=== PATIENT | female | born 1985 | race Caucasian/White ===

== ENCOUNTER 2017-04-20 13:46 | Outpatient (CLI) | payer MEDICAID ==
[~2017-04-20] VITALS: Ht 170.2 cm; Wt 73.9 kg
[2017-04-21] MEDS ORDERED: IBUP-1780 PO (07:24)
[2017-04-21] MEDS ORDERED: OXYC-465 PO (07:24)
== END 2017-04-20 14:22 ==
LOC: PREOP 13:46
PROVIDERS: ATTEND Obstetrics & Gynecology
DX: Z01.818 Encounter for other preprocedural examination (principal); O02.1 Missed abortion; D64.9 Anemia, unspecified

== ENCOUNTER 2017-04-21 06:05 | Day surgery (SDC) | payer BC, MEDICAID ==
[~2017-04-21] VITALS: Ht 170.2 cm; Wt 73.9 kg
[2017-04-21 06:15] VITALS: BP 127/81
[2017-04-21] MEDS ORDERED: LIDOCAINE PF 2% 5 ML (XYLOCAINE) VIAL ONE (06:32)
[2017-04-21] MEDS ORDERED: proPOfol 200 MG/20 ML (DIPRIVAN) VIAL IV ONE (06:32)
[2017-04-21] MEDS ORDERED: SEVOFLURANE (ULTANE) 15 ML INHAL SOLN ONE ×3 (06:32→07:42)
[2017-04-21] MEDS ORDERED: MIDAZOLAM 10 MG/2 ML (VERSED) VIAL ONE (06:33)
[2017-04-21] MEDS ORDERED: fentaNYL INJECTION 100 MCG/2 ML AMP ONE (06:33)
[2017-04-21] MEDS ORDERED: CEFAZOLIN IV ONE ×2 (06:45)
[2017-04-21] MEDS ORDERED: D5W IV ONE ×2 (06:45)
[2017-04-21] MEDS ORDERED: CATHETER FLUSH 10 ML SYR IV PRN (06:45)
[2017-04-21 06:54] LABS: BASOPHILS % (AUTO) 1 % (0-10); EOSINOPHILS # (AUTO) 0.2 10^3/uL (0.0-0.3); EOSINOPHILS % (AUTO) 3 % (0-10); HEMATOCRIT 37 % (35-52); HEMOGLOBIN 13.3 G/DL (11.5-16.0); LYMPHOCYTES # (AUTO) 1.9 X 10^3 (1.0-4.0); LYMPHOCYTES % (AUTO) 35 % (12-44); MEAN CORPUSCULAR HEMOGLOBIN 32 PG (25-34); MEAN CORPUSCULAR HGB CONC 36 G/DL (32-36); MEAN CORPUSCULAR VOLUME 89 FL (80-99); MEAN PLATELET VOLUME 9.4 FL (7.4-10.4); MONOCYTES # (AUTO) 0.5 X 10^3 (0.0-1.0); MONOCYTES % (AUTO) 8 % (0-12); NEUTROPHILS # (AUTO) 2.9 X 10^3 (1.8-7.8); NEUTROPHILS % (AUTO) 53 % (42-75); PLATELET COUNT 256 10^3/uL (130-400); RED CELL DISTRIBUTION WIDTH 12.1 % (10.0-14.5); WHITE BLOOD COUNT 5.5 10^3/uL (4.3-11.0)
[2017-04-21] MEDS ORDERED: ceFAZolin INJECTION 1,000 MG in D5W 50 ML IVPB SOLUTION 50 ML IV ONE (07:00)
[2017-04-21] MEDS ORDERED: D5 LR IV SOLUTION 1,000 ML IV SCH (07:21)
[2017-04-21] MEDS ORDERED: IBUP-1780 PO (07:24)
[2017-04-21] MEDS ORDERED: OXYC-465 PO (07:24)
--- NOTE | 2017-04-21 07:25 | Discharge Instructions ---
Discharge Instructions Discharge Medications New, Converted or Re-Newed RX: RX on Chart Patient Instructions Patient Instructions: as directed Return to The Hospital For: as directed Activity & Diet Discharge Diet: No Restrictions Activity as Tolerated: Yes Orders-Post D/C & Referrals Follow Up Appt: Call to make follow up appt. for patient in 2 weeks. Activity: as tolerated. Diet: As tolerated-Clear Liquids only if nauseated. May shower or tub bathe as desired. Nothing per vagina (no tampons, douching, or intercourse) for 2 weeks. Patient to return to the clinic as soon as possible for: Temperature greater than 101F, Severe Pain, Foul discharge from incision or vagina, Excessive Bleeding (more than a period). LIVAN ENGEL MD Apr 21, 2017 7:25 am
--- NOTE | 2017-04-21 07:26 | Progress Note-Pre Operative ---
Pre-Operative Progress Note H&P Reviewed The H&P was reviewed, patient examined and no changes noted. Date Seen by Provider: Apr 21, 2017 Time Seen by Provider: 07:25 Date H&P Reviewed: Apr 21, 2017 Time H&P Reviewed: : Pre-Operative Diagnosis: missed /blighted ovum LIVAN ENGEL MD Apr 21, 2017 7:26 am
--- NOTE | 2017-04-21 07:27 | Progress Note-Post Operative ---
Post-Operative Progess Note Surgeon (s)/Public Health Nutritionist (s) Surgeon LIVAN ENGEL MD Public Health Nutritionist: none Pre-Operative Diagnosis missed /blighted ovum Post-Operative Diagnosis same with pathology pending Procedure & Operative Findings Date of Procedure 04/21/17 Procedure Performed/Findings D&C for blighted ovum Anesthesia Type GETA Estimated Blood Loss Estimated blood loss (mL): less than 100 mL Specimens/Packing Specimens Removed uterine contents/products of conception Packing: none LIVAN ENGEL MD Apr 21, 2017 07:27
[2017-04-21] MEDS ORDERED: MEPERIDINE (DEMEROL) INJ 100 MG/ML IM ONE (07:30)
[2017-04-21] MEDS ORDERED: KETOROLAC 30 MG/ML VIAL IVP ONE (07:30)
[2017-04-21] MEDS ORDERED: oxyCODONE/APAP 10/325MG (PERCOCET 10) TABLET PO PRN (07:30)
[2017-04-21] MEDS ORDERED: ONDANSETRON 4 MG/2 ML (SDV) Z0FRAN IVP PRN ×2 (07:30→08:00)
[2017-04-21] MEDS ORDERED: PROMETHAZINE INJ 25 MG/ML (PHENERGAN) AMP IM ONE (07:30)
[2017-04-21] MEDS ORDERED: ONDANSETRON 4 MG/2 ML (SDV) Z0FRAN ONE (07:42)
[2017-04-21] MEDS ORDERED: MEPERIDINE (DEMEROL) INJ 50 MG/ML IVP PRN (08:00)
[2017-04-21] MEDS ORDERED: morphine INJ 10 MG/ML 1ML (SYR OR VIAL) IVP PRN (08:00)
--- NOTE | 2017-04-21 08:31 | OPERATIVE REPORT ---
DATE OF SERVICE: 04/21/2017 PREOPERATIVE DIAGNOSIS: Missed /blighted ovum. POSTOPERATIVE DIAGNOSIS: Missed /blighted ovum. OPERATIVE PROCEDURE: D and C for missed AB. DESCRIPTION: With the patient in the supine position under satisfactory general anesthesia, she was repositioned in dorsal lithotomy position in the [facility][note 3]rups and prepped and draped in the usual fashion for vaginal surgery. The urinary bladder was emptied with a straight catheter. Weighted speculum placed in the posterior points of the vagina, cervix exposed and grasped anteriorly with single tooth tenaculum. The uterus was sounded to 13 cm uterine sound. The cervix was then serially dilated with Vipul dilators to accommodate a #9 curve sucking curette, which was introduced and the uterine cavity curettaged with removal of a large amount of trophoblastic and decidual appearing tissue and fluid, blood clot and debris. The endometrial cavity sharply curettaged in all 4 quadrants to good uterine cry and then a curved sucking curette was reintroduced. All blood clot and debris evacuated from the uterus. The tenaculum was removed from the cervix. There was some bleeding from both puncture sites. These were touched with silver nitrate to effect hemostasis. With bleeding controlled, no bleeding from the cervical os. The uterus had decreased in size from approximately 10 weeks to 6 or 8-week size and was contracted nicely. There was no significant bleeding. Sponge and needle counts were correct. The estimated blood loss was less than 100 mL. The patient tolerated the procedure well and was uneventfully awakened from her general anesthesia and transferred to recovery room in stable condition with plans for discharge home PAR. Job ID: [id number] DocumentID: [id number] Dictated Date: 04/21/2017 07:45:30 Environmental Technology Professor Date: 04/21/2017 08:31:03 Dictated By: LIVAN ENGEL MD
[2017-04-21 08:35] VITALS: BP 141/85
[2017-04-21 08:36] VITALS: BP 141/85
[2017-04-21 09:05] VITALS: BP 120/78
[2017-04-21] MEDS ORDERED: LACTATED RINGERS 1,000 ML IV PRN (09:21)
[2017-04-21] MEDS ORDERED: IBUPROFEN 800 MG (MOTRIN) TAB PO ONE (09:45)
--- OUTSIDE RECORDS SUMMARY | 2017-04-23 06:12 | XMS REPORT ---
Author Author PASCUAL BENJAMIN [facility] eClinicalWorks Address Unknown Phone Unavailable Care Team Providers Care Corporate Banking Officer Name Role Phone PASCUAL BENJAMIN CP Unavailable Allergies, Adverse Reactions, Alerts Substance Reaction Event Type N.K.D.A. Info Not Available Non Drug Allergy Problems Problem Type Condition Code Onset Dates Condition Status Assessment Acute right ankle pain M25.571 Active Assessment Sprain of right ankle, unspecified ligament, initial encounter S93.401A Active Problem Cough 786.2 Active Medications No Known Medications Procedures Procedure Coding System Code Date Office Visit, Est Pt., Level 3 CPT-4 07159 Feb 04, 2016 X-RAY EXAM OF ANKLE CPT-4 39399 Feb 04, 2016 Vital Signs Date/Time: Feb 04, 2016 Blood Pressure Systolic 128 mmHg Cardiac Monitoring Heart Rate 84 bpm Weight 163.2 lbs Blood Pressure Diastolic 78 mmHg Results Name Result Date Reference Range Unit Abnormality Flag Xray : Ankle, Right 3 views (IN HOUSE) Summary Purpose eClinicalWorks Submission
--- OUTSIDE RECORDS SUMMARY | 2017-04-23 06:12 | XMS REPORT | Continuity of Care Document ---
Author Author [facility] Address Unknown Phone Unavailable Allergies There is no data. Medications There is no data. Problems Date Dx Coded Attending Type Code Diagnosis Diagnosed By 05/14/2009 GAIL VELÁSQUEZ DO V65.11 pediatric pre- visit for expectant mother 03/01/2013 GAIL VELÁSQUEZ DO 786.2 COUGH Procedures There is no data. Results There is no data. Encounters ACCT No. Visit Date/Time Discharge Status Pt. Type Provider Facility Loc./Unit Complaint [id number] 03/01/2013 13:27:00 03/01/2013 23:59:59 CLS Outpatient GAIL VELÁSQUEZ DO
== END 2017-04-21 09:55 | disposition home or self-care (01) ==
LOC: SDC 06:05
PROVIDERS: ATTEND Obstetrics & Gynecology
DX: O02.1 Missed abortion (principal)
CPT/HCPCS: 36415; 85025; 87081